=== PATIENT | male | born 1960 | race Caucasian/White ===

== ENCOUNTER 2022-04-15 08:47 | Day surgery (SDC) | payer OTHER ==
[~2022-04-15] VITALS: Ht 175.3 cm; Wt 119.3 kg
[~2022-04-15 08:47] MED LIST: ALLO100 PO; AMLO10 PO; AMOCLA875 PO; ATOR10; CIPR500 PO; FISH1000 PO; FLUC200 PO; GEMF600 PO; Gemfibrozil600 MG PO; HYDR1TAB94 PO; LISI20 PO; METO50 PO; METR500 PO; OMEGA 3-6-9 11200 MG PO; Omeprazole20 M1 PO; Prilosec Otc20 MG PO; VIT D3 PO; VITAMIN D2000 UNIT PO
--- NOTE | 2022-04-15 10:01 | NUR ---
Ambulatory in Day Surgery History, Chart, Medications and Allergies reviewed before start of procedure. Pre-Op teaching done. Pt verbalizes understanding. Patient States Post-Procedure ride home has been arranged.
--- NOTE | 2022-04-15 10:16 | NUR ---
04/15/22 Ellen Lynch HISTORY, CHART, MEDICATIONS AND ALLERGIES REVIEWED BEFORE START OF PROCEDURE. PATIENT CONFIRMS NPO STATUS AND AGREES WITH SCHEDULED PROCEDURE. 3-LEAD EKG REVIEWED WITH PHYSICIAN PRIOR TO START OF PROCEDURE. MONITOR INTACT WITH CONTINUOUS PULSE OXIMETRY,CAPNOGRAPHY, 3-LEAD EKG, INTERMITTENT BP. SUPPLEMENTAL O2 TO BE TITRATED THROUGHOUT PROCEDURE TO MAINTAIN O2 SATURATION ABOVE 90%. PATIENT DETERMINED TO BE ASA APPROPRIATE FOR PROPOFOL SEDATION PRIOR TO START OF PROCEDURE BY DR. ANDREWS
--- NOTE | 2022-04-15 10:48 | NUR ---
Patient up to Ambulate independently. Gait steady. Discharge instructions reviewed with patient. Patient verbalizes understanding. Copy given to patient to take home. Patient States Post-Procedure ride home has been arranged with [facility]. Discharged via wheelchair to private car for ride home.
== END 2022-04-15 10:53 | disposition home or self-care (01) ==
LOC: ORSCMMR 08:47 → ORD 09:30 → ORSCMMR 10:53
PROVIDERS: Internal Medicine Gastroenterology
PROC: 0DBL8ZX Excision of Transverse Colon, Via Natural or Artificial Opening Endoscopic, Diagnostic (ICD-10-PCS; principal; 2022-04-15 09:30)
PROC: 0DBC8ZX Excision of Ileocecal Valve, Via Natural or Artificial Opening Endoscopic, Diagnostic (ICD-10-PCS; principal; 2022-04-15 09:30)
PROC: 0DBN8ZX Excision of Sigmoid Colon, Via Natural or Artificial Opening Endoscopic, Diagnostic (ICD-10-PCS; principal; 2022-04-15 09:30)
DX: Z85.038 Personal history of other malignant neoplasm of large intestine (principal); D12.3 Benign neoplasm of transverse colon; D12.5 Benign neoplasm of sigmoid colon; K57.30 Diverticulosis of large intestine without perforation or abscess without bleeding; K64.8 Other hemorrhoids; I10 Essential (primary) hypertension; E78.00 Pure hypercholesterolemia, unspecified; M10.9 Gout, unspecified; F17.210 Nicotine dependence, cigarettes, uncomplicated; E66.9 Obesity, unspecified; Z68.39 Body mass index [BMI] 39.0-39.9, adult; Z79.899 Other long term (current) drug therapy
CPT/HCPCS: 88305; J2250; J2704; J7120

== ENCOUNTER 2024-04-15 14:49 | Emergency (ER) | payer OTHER ==
[~2024-04-15] VITALS: Ht 175.3 cm; Wt 117.9 kg
[2024-04-15 14:57] VITALS: BP 170/101
[2024-04-15 15:19] LABS: BASOPHILS ABSOLUTE AUTO 0.06 K/mm3 (0.00-0.23); BASOPHILS PERCENT AUTO 1 % (0-2); EOSINOPHILS PERCENT AUTO 3 % (0-6); Hematocrit 46.9 % (37.0-53.0); Hemoglobin 16.9 g/dL (13.5-17.5); IMMATURE GRAN ABSOLUTE AUTO 0.02 K/mm3 (0.00-0.10); IMMATURE GRAN PERCENT AUTO 0 % (0-1); LYMPHOCYTES ABSOLUTE AUTO 2.07 K/mm3 (0.84-5.20); LYMPHOCYTES PERCENT AUTO 30 % (21-46); MONOCYTES PERCENT AUTO 12 % (4-13); Mean Corpuscular HGB 32.7 pg (26.0-34.0); Mean Corpuscular Volume 91 fL (80-100); Mean Platelet Volume 10.7 fL (9.1-12.4); NEUTROPHILS ABSOLUTE AUTO 3.69 K/mm3 (1.96-9.15); NEUTROPHILS PERCENT AUTO 54 % (41-73); Platelet Count 175 K/mm3 (150-400); RDW Standard Deviation 46.7 fL (35.1-46.3); Red Blood Cell Count 5.17 M/mm3 (4.30-5.90); White Blood Cell Count 6.84 K/mm3 (4.00-11.30)
[2024-04-15 15:38] LABS: Albumin, Blood 3.5 g/dL (3.4-5.0); Albumin/Globulin Ratio 0.9 (0.8-1.8); Bilirubin, Total 0.3 mg/dL (0.1-1.0); Bun/Creatinine Ratio 21.7 (12.0-20.0); Calcium, Blood 9.8 mg/dL (8.5-10.1); Creatinine, Blood 0.78 mg/dL (0.60-1.20); Globulin, Blood 3.7 g/dL (2.2-4.0); Potassium, Blood 4.2 mmol/L (3.5-5.5); Total Protein, Blood 7.2 g/dL (6.4-8.2)
== END 2024-04-15 19:17 | disposition left against medical advice (07) ==
LOC: ER 14:49
PROVIDERS: Emergency Medicine
DX: H53.2 Diplopia (principal); Z53.29 Procedure and treatment not carried out because of patient's decision for other reasons
CPT/HCPCS: 70496; 80053; 85025; 93005; 93010; 99283-25; Q9967

== ENCOUNTER 2025-07-04 09:55 | Day surgery (SDC) | payer OTHER ==
[~2025-07-04] VITALS: Ht 175.3 cm; Wt 121.4 kg
[~2025-07-04 09:55] MED LIST changes: -ATOR10; +ATOR10 PO; +EPINEPhrine HCl 1 MG / ML 30ML Vial ONE; +Lidocaine 2%-Epineph 1:200000 20 ML SDV ONE
--- NOTE | 2025-07-04 10:12 | NUR ---
07/04/25 1012 AMIE SHAW PATIENT MET IN [facility], ADVISED DR. SINGLETARY'S ROOM IS RUNNING BEHIND. HE AND ARE PRESENT - THEY WILL RUN AN ERRAND AND COME BACK.
[2025-07-04] MEDS ORDERED: TAMS.4ER PO (10:50)
[2025-07-04] MEDS ORDERED: CHLO25B PO (10:50)
[2025-07-04] MEDS ORDERED: ASPI81CH PO (10:52)
[2025-07-04] MEDS ORDERED: Tranexamic Acid 100 ML IV ONE (12:14)
[2025-07-04] MEDS ORDERED: Ipratropium/Albuterol SulF 2.5-0.5MG/3 ML Amp ONE (12:34)
[2025-07-04] MEDS ORDERED: FentaNYL Citrate 50 MCG/ML 2 ML Injection ONE ×2 (12:37→13:32)
[2025-07-04] MEDS ORDERED: SuccINYLCHOLINE Chloride 100 MG/5 ML 5MLSYR ONE (12:38)
[2025-07-04] MEDS ORDERED: Rocuronium Bromide 10 MG/ML 5ML Injection IV ONE (12:38)
[2025-07-04] MEDS ORDERED: Midazolam HCl 1MG / ML 2ML Vial ONE (12:50)
[2025-07-04] MEDS ORDERED: Dexamethasone Sod Phos 10 MG/ML 1ML VIAL ONE (13:05)
--- NOTE | 2025-07-04 13:10 | NUR ---
07/04/25 1310 Kari Lynn 30ML OF EPI 1MG/ML USED FOR SOAKING PLEDGETTS USED DURING CASE. TXA 1GM GIVEN [id number] BY ANESTHESIA.
[2025-07-04] MEDS ORDERED: ePHEDrine Sulfate 50 MG/ML 1ML Injection ONE (13:17)
[2025-07-04] MEDS ORDERED: Sugammadex Sodium 200 MG/2ML SDV (100 MG/ML) ONE ×2 (13:23→13:51)
[2025-07-04] MEDS ORDERED: Ondansetron HCl 2 MG / ML 2ML Vial ONE (13:23)
[2025-07-04] MEDS ORDERED: Albuterol 2.5 MG/3 ML VIAL ONE (13:51)
--- NOTE | 2025-07-04 15:14 | NUR ---
07/04/25 1514 Gianna Waite 1401 RESP AND ANES AT BEDSIDE FOR STAND BY, PT RECOVERING WELL WITH CURRENT REGIMEN OF FACETENT TITRATED FROM 10LITER TO 6 LITERS TRESSA WELL.
[2025-07-04 15:19] VITALS: BP 120/77
--- NOTE | 2025-07-04 15:20 | NUR ---
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 REVIEWED ALL DISCHARGE INSTRUCTIONS WITH PT AND BOTH VERBALIZED UNDERSTANDING, WRITTEN INSTRUCTIONS AND GAUZE GIVEN.
== END 2025-07-04 15:04 | disposition home or self-care (01) ==
LOC: ORSCSDS 09:55
DX: J34.1 Cyst and mucocele of nose and nasal sinus (principal); K13.70 Unspecified lesions of oral mucosa; J34.2 Deviated nasal septum; I10 Essential (primary) hypertension; G47.33 Obstructive sleep apnea (adult) (pediatric); F17.210 Nicotine dependence, cigarettes, uncomplicated; E66.01 Morbid (severe) obesity due to excess calories; Z68.39 Body mass index [BMI] 39.0-39.9, adult; Z79.899 Other long term (current) drug therapy; Z79.82 Long term (current) use of aspirin
CPT/HCPCS: 88305; J0165; J0330; J1100; J2250; J2405; J2704; J3010